=== PATIENT | female | born 1965 | race Caucasian/White ===

== ENCOUNTER 2017-08-30 14:01 | Observation (INO) ==
[2017-08-30] MEDS ORDERED: ASPIRIN 325 MG TABLET PO STA (14:19)
[2017-08-30] MEDS ORDERED: ASPIRIN 325 MG TABLET ONE (14:24)
[2017-08-30] MEDS ORDERED: NITROGLYCERIN SL 0.4 MG TABLET SL ONE (14:25)
[2017-08-30] MEDS: NITROGLYCERIN SL 0.4 MG TABLET SL PRN ×5 (14:26→23:36)
--- NOTE | 2017-08-30 14:33 | Order Completion Report ---
See report scanned to EMR
[2017-08-30 14:34] LABS: Eosinophils # 0.3 10*3/uL (0.0-0.87); Eosinophils % 5.5 % (0.00-10.9); Hematocrit 34.2 VOL% (35.7-47.0); Hemoglobin 12.2 GM/DL (12.0-16.0); Immature Granulocytes Absolute 0.05 #; Lymphocytes # 1.2 10*3/uL (1.4-4.0); Lymphocytes % 22.7 % (21.3-54.2); Mean Corpuscular HGB Conc 35.7 GM/DL (32-36); Mean Corpuscular Hemoglobin 31 PG (27-34); Mean Corpuscular Volume 88.1 FL (87-102); Mean Platelet Volume 9.8 FL (9.6-12.0); Monocytes # 0.4 10*3/uL (0.11-0.8); Monocytes % 7.9 % (1.7-12.7); Neutrophils # 3.2 10*3/uL (1.4-7.4); Neutrophils % 62.9 % (38.7-73.9); Platelet Count 233 T/CUMM (130-400); Red Blood Count 3.88 MC/CUMM (3.8-5.5); Red Cell Distribution Width 15.2 % (9.3-17.3); White Blood Count 5.1 T/CUMM (4-12)
[2017-08-30 15:14] LABS: Albumin 3.9 G/DL (3.4-5.0); Bilirubin,Total 2.4 MG/DL (0.2-1.0); Calcium 9.4 MG/DL (8.5-10.1); Osmolality,Calculated 277.5 MOS/KG (273-304); Potassium 3.6 MMOL/L (3.5-5.1); Total Protein 6.7 G/DL (6.4-8.3)
[2017-08-30] MEDS ORDERED: ALUM/MAG/SIMETH/LIDO VISC 1:1 30 ML BOTTLE PO STA (15:40)
[2017-08-30] MEDS ORDERED: ALUM/MAG/SIMETH/LIDO VISC 1:1 30 ML BOTTLE PO ONE (15:42)
--- NOTE | 2017-08-30 15:44 | Emergency Department Note ---
Tripp Odell Mantricia, am scribing for, and in the presence of, Salvador Anaya Jr., MD 14:13. IHéctor Marvin Jr., MD, personally performed the services described in this documentation, ascribed by Anjana Almaguer in my presence, and it is both accurate and complete 423 . Arrival - Arrival Chief Complaint: Chest Pain Stated Complaint: chest pain and sob ED Nursing Triage Note: Pt c/o Chest pain, right jaw pain, SOB, and nausea x 30 min. Mode of Arrival: Ambulatory Limitations: No Limitations Source: Patient - History of Present Illness HPI Narrative: Pt is a 52 y/o white female ambulating to ED with c/o chest pain that onset 1330 today. She also c/o right jaw pain, nausea, and SOB. She states that the jaw pain has been on and off. Pt states that the pain is worsened with movement and relieved while at rest. Pt denies taking an [employer] DIETITIAN THERAPEUTIC. At time of exam, pt's heart rate is 72 with a blood pressure of 113/57. she has a PMHx of HTN and hypothyroidism. No other complaints were reported to ED. Onset (ago): hour(s) Consistency: constant Severity: moderate, severe Allergies/Adverse Reactions: Allergies Allergy/AdvReac Type Severity Reaction Status Date / Time codeine Allergy ITCHING Verified 08/30/17 14:03 sumatriptan [From Imitrex] Allergy Swelling Verified 08/30/17 14:03 of Lip/Tongue/Throat Home Medications: Home Medications Medication Instructions Recorded Confirmed Type Estradiol Tab [Estrace Tab] 1 mg PO QAM 08/30/17 08/30/17 History Levothyroxine Tab [Synthroid Tab] 175 mcg PO DAILY@0700 08/30/17 08/30/17 History Losartan Potassium 50 mg PO QAM 08/30/17 08/30/17 History Pantoprazole Tab [Protonix Tab] 20 mg PO QAM 08/30/17 08/30/17 History hydroCHLOROthiazide 25 mg PO QAM 08/30/17 08/30/17 History [Hydrochlorothiazide] Review of System - Review of System 12 point system: reviewed and no additional remarkable complaints except as stated - Review of System Constitutional: Absent: chills, diaphoresis, fever Head/Ears/Nose/Throat: Present: other (right jaw pain) Respiratory: Present: other (SOB). Absent: cough Cardiovascular: Present: chest pain Gastrointestinal: Present: nausea. Absent: abdominal pain, vomiting Musculoskeletal: Absent: arm pain, back pain, leg pain, neck pain Medical,Surgical,& Family Hx - Medical History Cardio: History of: Hypertension Neurology: History of: Migraine, Seizures (STRESS SZ) Endocrine: History of: Thyroid Disorder (Hypo) - Social History Smoking Status: Never smoker Exam Physical Examination: General: Well-developed well-nourished, no apparent distress. Head: Normocephalic, atraumatic. Eyes: PERRLA, EOMI. Nose: No obvious acute deformities or discharge. Mouth: No obvious acute injury. Neck: Full range of motion without obvious pain. No midline tender to palpation. Lymphatic: no significant lymphadenopathy noted. Lungs: Clear to auscultation bilaterally, normal and equal air movement bilaterally, no obvious rales or wheezing. Heart: regular rate and rhythm, no obvious mummers. Abdomen: Soft nontender, nondistended, normal active bowel sounds. Skin: No obivous acute lesions noted Musculoskeletal: No gross deformities. Neurological: No focal findings, cranial nerves II through XII grossly normal. Psychiatric: Anxious : Deferred Vital Signs: Vital Signs Temperature 97.5 F L 08/30/17 14:02 Pulse Rate 75 08/30/17 15:00 Respiratory Rate 16 08/30/17 15:00 Blood Pressure 91/46 08/30/17 15:00 O2 Sat by Pulse Oximetry 100 08/30/17 15:00 Course Course Narrative: Differential diagnosis, ACS, IN, chest wall pain, PE - Reevaluation(s) Reevaluation #1: Improving but not completely pain-free. Time: 15:40 Results - Labs CBC & BMP: 08/30/17 14:21 08/30/17 14:21 Lab Results: I have reviewed the patients labs Labs: Laboratory Tests 08/30/17 08/30/17 14:21 14:21 Hct 34.2 L Lymph # (Auto) 1.2 L Total Bilirubin 2.40 H - EKG EKG results: interpreted by FRANCIE (Heart rate 67, narrow complex QRS complexes, normal sinus rhythm, no obvious acute ST changes.) - Diagnostic Findings Procedure: Chest x-ray: image reviewed by me (No obvious acute changes per me) Disposition Clinical Impression: Chest pain, Gilbert syndrome Case discussed with: patient, patient's family Disposition: Still a Patient Condition: Stable Time of Disposition: 15:43
--- NOTE | 2017-08-30 15:57 | XRay Report ---
Portable chest Indication: Chest pain Comparison: August 08, 2013 Findings: Cardiomediastinal contours are normal. Lungs are clear bilaterally. No acute osseous abnormalities. Visualized upper abdomen demonstrates no acute pathology. Impression: Normal chest PROCEDURE INTERPRETED AT [facility] DEPARTMENT OF RADIOLOGY Final Report Signed by: Denise Tellez MD
[2017-08-30] MEDS ORDERED: ACETAMINOPHEN 325 MG TABLET PO PRN (17:02)
[2017-08-30] MEDS ORDERED: MORPHINE 2 MG/1 ML SYRINGE IV PRN (17:29)
[2017-08-30] MEDS: DEXTROSE 5% NACL 0.45% 1,000 ML IV SCH (17:35)
[2017-08-30] MEDS: traMADol 50 MG TABLET PO PRN (17:57)
[2017-08-30] MEDS: DOCUSATE SODIUM 100 MG CAPSULE PO SCH (20:47)
[2017-08-30] MEDS: ONDANSETRON 4 MG/2 ML VIAL IV PRN (20:48)
[2017-08-31] MEDS: ONDANSETRON 4 MG/2 ML VIAL IV PRN (04:19)
[2017-08-31] MEDS: traMADol 50 MG TABLET PO PRN ×3 (04:20→21:28)
[2017-08-31 08:37] LABS: Troponin I Only < 0.015 NG/ML (0.00-0.045)
[2017-08-31] MEDS: DOCUSATE SODIUM 100 MG CAPSULE PO SCH ×2 (08:50→21:28)
[2017-08-31] MEDS: ENOXAPARIN 40 MG/0.4 ML SYRINGE SUBCUT SCH (08:50)
[2017-08-31 08:51] LABS: Free T4 (Free Thyroxine) 0.99 NG/DL (0.76-1.46); Thyroid Stimulating Hormone 3.87 uIU/ml (0.358-3.74)
[2017-08-31] MEDS: ESTRADIOL 1 MG TABLET PO SCH (08:51)
[2017-08-31] MEDS: PANTOPRAZOLE 40 MG TABLET PO SCH (08:51)
[2017-08-31] MEDS: hydroCHLOROthiazide 25 MG TABLET PO SCH (08:51)
[2017-08-31] MEDS: LOSARTAN 50 MG TABLET PO SCH (08:51)
[2017-08-31 09:22] LABS: Risk Ratio 4.3
--- NOTE | 2017-08-31 11:40 | Family Practice History&Phys ---
Assessment and Plan (1) Chest pain Status: Acute Assessment and plan: 08/31/2017: We will admit, repeat cardiac ices and get cardiology to look at. Current Visit: Yes (2) Gilbert syndrome Status: Acute Assessment and plan: 08/31/2017: This is chronic with this patient. She has no symptoms from Current Visit: Yes (3) Hypothyroidism Status: Acute Assessment and plan: 08/31/2017: Monitor thyroid status. It was normal TSH and free T4 in the ER Current Visit: Yes (4) HTN (hypertension) Status: Chronic Assessment and plan: 08/31/2017: Monitor vitals closely. Continue current medicines Current Visit: Yes (5) Obese Status: Chronic Assessment and plan: 08/31/2017: I discussed with patient the past weight issues. Will probably deal with this on an outpatient basis Current Visit: Yes History of Present Illness Chief complaint: Chest pain, nausea History of present illness: Ms. Browning is a 52 year old female Well-known to me. She began having chest pain and some shortness of breath while at home during laundry yesterday afternoon. It lasted approximately 30 minutes. Does not have a cardiac history and has never had a significant workup. She states that this did radiate to her right jaw and she became nauseated although she did not vomit. There was no diaphoresis associated with it. Came to the emergency room and they gave her several medications including GI cocktail (no relief), and also gave her a nitroglycerin which did give her some relief with jaw pain but not chest pain. She does have some risk factors for cardiac disease including obesity, hypertension, positive family history, sedentary lifestyle. She does not use alcohol or smoke. Denies any fever chills diarrhea. Not having any difficulty with swallowing. No arianna abdominal or midepigastric discomfort. No flank pain or leg swelling. Surgical history includes total hysterectomy and tonsillectomy. Abnormal lab: total bili 2.40. cxr normal. initial isos x 2 are negative plan to admit and get cardiology. Will get G.B. US if cardiac r/o Home Medications Medication Instructions Recorded Confirmed Type Estradiol Tab [Estrace Tab] 1 mg PO QAM 08/30/17 08/30/17 History Levothyroxine Tab [Synthroid Tab] 175 mcg PO DAILY@0700 10/08/17 10/08/17 History Losartan Potassium 50 mg PO QAM 08/30/17 08/30/17 History Pantoprazole Tab [Protonix Tab] 20 mg PO QAM 08/30/17 08/30/17 History hydroCHLOROthiazide 25 mg PO QAM 08/30/17 08/30/17 History [Hydrochlorothiazide] Allergies Allergy/AdvReac Type Severity Reaction Status Date / Time codeine Allergy ITCHING Verified 08/30/17 14:03 sumatriptan [From Imitrex] Allergy Swelling Verified 08/30/17 14:03 of Lip/Tongue/Throat 12 point system: reviewed and no additional remarkable complaints except as stated (as per hpi) Medical,Surgical,& Family Hx - Medical History Cardio: History of: Hypertension Neurology: History of: Migraine, Seizures (STRESS SZ) Endocrine: History of: Thyroid Disorder (Hypo) Gastrointestinal: History of: GERD - Family History Family History: Reports;: Family Cancer, Family Diabetes (Father, type 2), Family Heart Disease (Father), Family Hypertension (Mother), Family Stroke ( mother and father) Denies;: Family Anesthesia Reaction - Social History Smoking Status: Never smoker Frequency of Alcohol Use: Rarely Type of Drug Use: None Exam - Constitutional Vitals: Period Temp Pulse Resp BP Sys/Sanchez Pulse Ox Last 24 Hr 96.2 F-97.7 F 63-88 16-22 88-125/45-85 92-100 Exam: Well-developed, moderately obese female. She is alert and oriented and answering all questions appropriately. Her is in the room. HEENT pupils equal reactive to light extraocular movements are intact neck is supple trachea midline. Cardiovascular rate is regular no gallop or rubs 1 out of 6 systolic ejection murmur. No chest pain pressure present Lungs clear bilaterally no wheezing rales rhonchi Abdomen soft nondistended Extremities no clubbing cyanosis or edema Neurologically fully intact, no focal lateralizing motor or sensory deficits Results - Labs CBC & BMP: 08/30/17 14:21 08/30/17 14:21
--- NOTE | 2017-08-31 11:52 | Cardiology Consult Note ---
Roby Odell Lesley, RADHA, am scribing for, and in the presence of, Titi Gonzalez MD 11:51. Assessment and Plan - Time spent with patient Time spent with patient: Greater than 30 minutes (Record review, assessment, and documentation) (1) Obese Status: Chronic Assessment and plan: SEE PLAN LISTED BELOW Current Visit: Yes (2) HTN (hypertension) Status: Chronic Assessment and plan: SEE PLAN LISTED BELOW Current Visit: Yes (3) Chest pain Status: Acute Assessment and plan: SEE PLAN LISTED BELOW Current Visit: Yes (4) Nausea Status: Acute Assessment and plan: SEE PLAN LISTED BELOW Current Visit: Yes History of Present Illness - Data of Consult Patient: new to practice Consult date: 08/31/17 Requesting Physician: Diego Hutton Primary care physician: Diego Hutton - Consult Narrative Reason for consult: chest pain 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 She states she began having chest heaviness with difficulty breathing while doing laundry at home. She states the pain lasted approximately 30 minutes off and on. She notes that when the pain radiated into her right jaw, she decided to go to the emergency room for an evaluation. She reports an onset of nausea upon arriving to ER. She states she was given nitroglycerin sublingually in the ER, which alleviated her jaw pain but not her chest pain. She denies any aggravating factors. Past medical history includes hypothyroidism, hypertension, GERD, pseudoseizures, anxiety. Past surgical history includes tonsillectomy, hysterectomy, tubal , 7-8 laparoscopic surgeries while trying to get . Family history is significant for her father who had an [place] at the age of 69, and is diabetic. Cardiac risk factors include obesity, hypertension , sedentary lifestyle. She denies history of smoking, reports rare alcohol use , denies illicit drug use. The patient currently denies chest pain and dyspnea. She states she has had ongoing nausea since admission. Cardiac biomarkers have remained negative. D- dimer less than 0.5. Total bilirubin 2.4. All other labs unremarkable. Chest x-ray reveals no acute cardiopulmonary process. EKGs reveal sinus rhythm. The patient has been held n.p.o. overnight, we will order an echocardiogram and consider stress test. Will also add a fasting lipid panel to labs. IMPRESSION AND PLAN: 1. CHEST PAIN - currently pain free, troponins negative, EKG without ischemic changes. 2. NAUSEA - consider gallbladder workup. 3. HYPERTENSION - controlled, will monitor and adjust medications accordingly. 4. 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 Cardiology addendum. Patient examined chart reviewed discussed with nurse HIEU Jackson. 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 Negative troponin 4. EKG benign. Negative chest x-ray. Lifetime non-smoker. No diabetes. No history of exertional angina but does have dyspnea. Plan Echo Doppler Exercise cardiac stress test Risk factor modification CC: Diego Hutton, DO - Home Medications and Allergies Home Medications: Home Medications Medication Instructions Recorded Confirmed Type Estradiol Tab [Estrace Tab] 1 mg PO QAM 08/30/17 08/30/17 History Levothyroxine Tab [Synthroid Tab] 175 mcg PO DAILY@0700 08/30/17 08/30/17 History Losartan Potassium 50 mg PO QAM 08/30/17 08/30/17 History Pantoprazole Tab [Protonix Tab] 20 mg PO QAM 08/30/17 08/30/17 History hydroCHLOROthiazide 25 mg PO QAM 08/30/17 08/30/17 History [Hydrochlorothiazide] Allergies/Adverse Reactions: Allergies Allergy/AdvReac Type Severity Reaction Status Date / Time codeine Allergy ITCHING Verified 08/30/17 14:03 sumatriptan [From Imitrex] Allergy Swelling Verified 08/30/17 14:03 of Lip/Tongue/Throat - Constitutional Constitutional: Absent: anorexia, chills - EENT Nose, mouth and throat: Absent: dysphagia, headache(s) - Cardiovascular Cardiovascular: Present: chest pain with activity, dyspnea, radiating jaw, neck or arm pain. Absent: diaphoresis - Respiratory Respiratory: Present: dyspnea on exertion. Absent: cough - Gastrointestinal Gastrointestinal: Present: nausea. Absent: abdominal pain, change in bowel habits, coffee ground emesis, diarrhea, dyspepsia, heartburn, hematemesis, hematochezia, melena, vomiting - Genitourinary Genitourinary: Absent: flank pain, hematuria - Neurological Neurological: Absent: abnormal gait, abnormal speech, behavioral changes - Psychiatric Psychiatric: Present: anxiety - Endocrine Endocrine: Absent: cold intolerance, fatigue, heat intolerance - Hematologic/Lymphatic Hematologic/Lymphatic: Absent: easy bleeding Medical,Surgical,& Family Hx - Medical History Cardio: History of: Hypertension Neurology: History of: Migraine, Seizures (psuedo) Endocrine: History of: Thyroid Disorder (Hypo) Gastrointestinal: History of: GERD - Family History Family History: Reports;: Family Cancer, Family Diabetes (Father, type 2), Family Heart Disease (Father), Family Hypertension (Mother), Family Stroke ( mother and father) Denies;: Family Anesthesia Reaction - Social History Smoking Status: Never smoker Frequency of Alcohol Use: Rarely Type of Drug Use: None Marital Status: Lives With:: Spouse Functional capacity: independent ambulation Physical Examination Vital Signs Temp Pulse Resp BP Pulse Ox 97.5 F L 88 22 125/85 97 08/30/17 14:02 08/30/17 14:02 08/30/17 14:02 08/30/17 14:02 08/30/17 14:02 Exam: General: Appears well with no apparent distress. Pleasant and cooperative. Appears comfortable. HEENT: PERRL, normocephalic, atraumatic. Mucous membranes moist. No jaundice noted. Conjunctiva moist and clear, sclerae anicteric. Neck: No JVD, no thyromegaly or lymphadenopathy noted. No carotid bruit appreciated. Cardiac: Regular rate and rhythm. No murmur rub or gallop. PMI is nondisplaced. Lungs: Clear to auscultation without accessory muscle use to assist the respiratory pattern. No oxygen in use Abdomen: Soft, bowel sounds normoactive. Nontender and nondistended. No abdominal bruit or thrill noted. No masses noted. Musculoskeletal: No edema noted, SCD hose intact. Full range of motion is noted. Extremities: No clubbing, cyanosis noted. No edema noted. Upper extremity pulses 2+. Lower extremity pulses 2+. Capillary refill less than 3 seconds. Skin: Warm and dry. No unusual lesions or rashes. No skin breakdown appreciated. Neuro: Awake, alert and oriented 3. Moves all extremities well without hemiparesis or paralysis. No essential tremor is appreciated. Result/EKG - Labs CBC & BMP: 08/30/17 14:21 08/30/17 14:21 Lab Results: I have reviewed the past 24 hour labs Labs: Laboratory Results - last 24 hr 1008/30/17 08/30/17 14:21 14:21 14:21 WBC 5.1 RBC 3.88 Hgb 12.2 Hct 34.2 L MCV 88.1 MCH 31 MCHC 35.7 RDW 15.2 Plt Count 233 MPV 9.8 Neut % (Auto) 62.9 Lymph % (Auto) 22.7 [place] % (Auto) 7.9 Eos % (Auto) 5.5 Baso % (Auto) 0.0 Neut # (Auto) 3.2 Lymph # (Auto) 1.2 L [place] # (Auto) 0.4 Eos # (Auto) 0.3 Baso # (Auto) 0.0 Immature Gran % 1.0 Nucleated RBC % 0.0 Immature Gran # 0.05 Nucleated RBCs # 0.00 Immature Plt Fraction 0.0 D-Dimer, Quantitative <= 0.5 Sodium Potassium Chloride Carbon Dioxide Anion Gap BUN Creatinine GFR Calculation BUN/Creatinine Ratio Glucose Calculated Osmolality Calcium Total Bilirubin AST ALT Alkaline Phosphatase Troponin I < 0.015 C-Reactive Protein Total Protein Albumin Globulin Albumin/Globulin Ratio 08/30/17 08/30/17 08/30/17 14:21 18:08 21:40 WBC RBC Hgb Hct MCV MCH MCHC RDW Plt Count MPV Neut % (Auto) Lymph % (Auto) [place] % (Auto) Eos % (Auto) Baso % (Auto) Neut # (Auto) Lymph # (Auto) [place] # (Auto) Eos # (Auto) Baso # (Auto) Immature Gran % Nucleated RBC % Immature Gran # Nucleated RBCs # Immature Plt Fraction D-Dimer, Quantitative Sodium 139 Potassium 3.6 Chloride 104 Carbon Dioxide 28 Anion Gap 10.6 BUN 15 Creatinine 0.90 GFR Calculation 94 BUN/Creatinine Ratio 16.00 Glucose 104 Calculated Osmolality 277.5 Calcium 9.4 Total Bilirubin 2.40 H AST 22 ALT 38 Alkaline Phosphatase 61 Troponin I < 0.015 < 0.015 C-Reactive Protein Total Protein 6.7 Albumin 3.9 Globulin 2.8 Albumin/Globulin Ratio 1.3 08/31/17 07:46 WBC RBC Hgb Hct MCV MCH MCHC RDW Plt Count MPV Neut % (Auto) Lymph % (Auto) [place] % (Auto) Eos % (Auto) Baso % (Auto) Neut # (Auto) Lymph # (Auto) [place] # (Auto) Eos # (Auto) Baso # (Auto) Immature Gran % Nucleated RBC % Immature Gran # Nucleated RBCs # Immature Plt Fraction D-Dimer, Quantitative Sodium Potassium Chloride Carbon Dioxide Anion Gap BUN Creatinine GFR Calculation BUN/Creatinine Ratio Glucose Calculated Osmolality Calcium Total Bilirubin AST ALT Alkaline Phosphatase Troponin I C-Reactive Protein 0.36 H Total Protein Albumin Globulin Albumin/Globulin Ratio - Diagnostic Findings Procedure: Chest x-ray: report reviewed by me - EKG EKG results: interpreted by me, sinus rhythm ICarlos Thomas, MD, personally performed the services described in this documentation, ascribed by Mariaelena Ca NP in my presence, and it is both accurate and complete .
--- NOTE | 2017-08-31 13:18 | Order Completion Report ---
See report scanned to EMR
--- NOTE | 2017-08-31 13:29 | Event Note ---
Patient admitted for chest pain for nuclear stress testing. Patient achieved THR in Stage II of Dajuan Protocol with achievement of 7.1 METs. Patient experienced mild ZUÑIGA and right knee pain. Patient had no acute EKG changes. Minimal ST depression noted inferiorly, improved with rest. No chest pain, heaviness, or tightness. No dizziness, lightheadedness, or syncope. Patient now to nuclear medicine for final scan. Dr. Gonzalez to read, interpret, and advise.
--- NOTE | 2017-08-31 13:49 | Order Completion Report ---
See report scanned to EMR
[2017-08-31] MEDS: DEXTROSE 5% NACL 0.45% 1,000 ML IV SCH ×2 (14:18→17:25)
[2017-09-01] MEDS ORDERED: LEVOTHYROXINE 175 MCG TABLET PO SCH (07:00)
[2017-09-01] MEDS: LOSARTAN 50 MG TABLET PO SCH (08:37)
[2017-09-01] MEDS: DOCUSATE SODIUM 100 MG CAPSULE PO SCH (08:38)
[2017-09-01] MEDS: PANTOPRAZOLE 40 MG TABLET PO SCH (08:38)
[2017-09-01] MEDS: ENOXAPARIN 40 MG/0.4 ML SYRINGE SUBCUT SCH (08:38)
[2017-09-01] MEDS: hydroCHLOROthiazide 25 MG TABLET PO SCH (08:38)
[2017-09-01] MEDS: ESTRADIOL 1 MG TABLET PO SCH (08:38)
[2017-09-01] MEDS: DEXTROSE 5% NACL 0.45% 1,000 ML IV SCH ×2 (08:54→12:36)
--- NOTE | 2017-09-01 10:43 | Cardiology Progress Note ---
Roby Odell Lesley, RADHA, am scribing for, and in the presence of, Titi Gonzalez MD 10:43. 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 Browning is a 52 year old WF, without known cardiac history. She was admitted for observation with chest pain (radiating into right jaw), shortness of breath, and nausea. Past medical history includes hypothyroidism, hypertension, GERD, pseudoseizures, anxiety. Past surgical history includes tonsillectomy, hysterectomy, tubal , 7-8 laparoscopic surgeries while trying to get . Family history is significant for her father who had an [place] at the age of 69, and is diabetic. Cardiac risk factors include obesity, hypertension, sedentary lifestyle. She denies lifetime history of smoking, reports rare alcohol use, denies illicit drug use. Cardiac biomarkers negative, EKG benign. Chest x-ray reveals no acute cardiopulmonary process. September 01, 2017: The patient denies chest heaviness (although she did have an episode last night) , nausea has improved today. No tenderness to palpation over midsternal area, but she is tender to palpation to left flank from axilla to base of ribs on left. Also anteriorly below the left breast. Echocardiogram revealed LVEF 55-60% , mildly dilated left atrium, normal valves, normal RV function, mild TR PA pressure 40mmHg, no effusion. Normal exercise Cardiolite stress test, EF 65%, low risk scan. Encouraged weight loss and exercise for marginally elevated lipid panel, Trigs 155, LDL 121, HDL 43. Continue to monitor hypertension, chronic and stable. ROS: absent: chest pain, dyspnea, nausea no acute distress IMPRESSION AND PLAN: 1. CHEST PAIN - currently pain free, troponins negative, EKG without ischemic changes. 2. NAUSEA - improved, consider gallbladder workup. 3. HYPERTENSION - controlled, will monitor and adjust medications accordingly. 4. OBESITY - the patient would benefit from weight loss, lifestyle changes. Cardiology addendum patient examined Chart reviewed discussed with patient and her Juan Jose. Normal exercise cardiac stress test. Ejection fraction 65%. This is a low risk scan. Noncardiac chest pain. Patient and her have been reassured. Risk factor modification encouraged. Home per Dr. Hutton. Exam (Progress Note) - Constitutional Vitals: Period Temp Pulse Resp BP Sys/Sanchez Pulse Ox Last 24 Hr 96.8 F-98.2 F 69-78 16-20 100-120/53-62 95-97 Exam: General: Appears well with no apparent distress. Pleasant and cooperative. Appears comfortable. HEENT: PERRL, normocephalic, atraumatic. Mucous membranes moist. No jaundice noted. Conjunctiva moist and clear, sclerae anicteric. Neck: No JVD, no thyromegaly or lymphadenopathy noted. No carotid bruit appreciated. Cardiac: Regular rate and rhythm. No murmur rub or gallop. PMI is nondisplaced. Lungs: Clear to auscultation without accessory muscle use to assist the respiratory pattern. No oxygen in use. Abdomen: Soft, bowel sounds normoactive. Nontender and nondistended. No abdominal bruit or thrill noted. No masses noted. Musculoskeletal: No edema to BLE noted. Full range of motion is noted. Extremities: No clubbing, cyanosis noted. No edema noted. Upper extremity pulses 2+. Lower extremity pulses 2+. Capillary refill less than 3 seconds. Skin: Warm and dry. No unusual lesions or rashes. No skin breakdown appreciated. Neuro: Awake, alert and oriented 3. Moves all extremities well without hemiparesis or paralysis. No essential tremor is appreciated. Result/EKG - Labs CBC & BMP: 08/30/17 14:21 08/30/17 14:21 Lab Results: I have reviewed the past 24 hour labs Labs: Laboratory Results - last 24 hr 08/31/17 08/31/17 08/31/17 07:46 07:46 07:46 ESR Westergren 10 Total Creatine Kinase 72 CK-MB (CK-2) < 1.0 Troponin I < 0.015 C-Reactive Protein 0.36 H Triglycerides Cholesterol LDL Cholesterol VLDL Cholesterol HDL Cholesterol Heart Disease Risk Ratio Free T4 TSH 3rd Generation 08/31/17 08/31/17 07:46 07:46 ESR Westergren Total Creatine Kinase CK-MB (CK-2) Troponin I C-Reactive Protein Triglycerides 155 H Cholesterol 185 LDL Cholesterol 121.0 VLDL Cholesterol 31.0 HDL Cholesterol 43 Heart Disease Risk Ratio 4.30 Free T4 0.99 TSH 3rd Generation 3.870 H - EKG EKG results: interpreted by me, sinus rhythm I, Titi Gonzalez MD, personally performed the services described in this documentation, ascribed by Mariaelena Ca NP in my presence, and it is both accurate and complete .
[2017-09-01 12:15] VITALS: BP 98/60
--- NOTE | 2017-09-01 13:38 | Ultrasound Report ---
History is nausea There is increased echogenicity of liver with attenuation of the ultrasound beam. Liver is 17.0 cm in length No gallstones or biliary ductal dilatation seen Visualized pancreas is normal in size No right renal hydronephrosis seen Aorta and IVC are obscured by bowel gas Impression: 1. Fatty infiltration the liver 2. Limited visualization of midline retroperitoneal structures PROCEDURE INTERPRETED AT [facility] DEPARTMENT OF RADIOLOGY Final Report Signed by: Dr. Andreia Dominguez
--- NOTE | 2017-09-01 14:30 | Discharge Summary ---
Hospital Course - Hospital Course Hospital Course: Patient was put in hospital for atypical chest pain and right upper quadrant pain. She underwent a cardiac evaluation with cardiac stress test as well as thallium scan. She also an echocardiogram. All this was found to be normal with an ejection fraction of 65%. There was subsequently felt that she probably had some costochondritis/pleurisy and was given medication for this. We did do a right upper quadrant ultrasound/gallbladder ultrasound. This proved to show no biliary ductal enlargement or any stones in the gallbladder There is no significant gallbladder wall thickening. Patient was doing better at the end of the day and discharged home on appropriate medications. We will have her follow-up closely if any problems. She did voice agreement with Diagnosis - Discharge Diagnosis (1) Chest pain Status: Acute (2) Gilbert syndrome Status: Acute (3) Hypothyroidism Status: Acute (4) HTN (hypertension) Status: Chronic (5) Obese Status: Chronic Specialty Discharge - Follow Up or Referrals Follow up with: Diego Hutton DO [Physician] - 2 Weeks (09/15/2017 1:00) Discharge Plan - Discharge Data Disposition: Disch To Home/Self Care Condition at Discharge: Stable Discharge Diet: heart healthy Activity: increase activity as tolerated Hygiene: no restrictions Weight Bearing at Discharge: weight bear as tolerated Driving: no restrictions Contact your physician if you experience:: fever over 101, Nausea/Vomiting, Shortness of breath - Discharge Medications New traMADol/ACETAMINOPH 37.5-325 [Ultracet] 1 tablet PO Q12H PRN #20 tablet PRN Reason: Pain Continue Pantoprazole Tab [Protonix Tab] 20 mg PO QAM Losartan Potassium 50 mg PO QAM Levothyroxine Tab [Synthroid Tab] 175 mcg PO DAILY@0700 Estradiol Tab [Estrace Tab] 1 mg PO QAM hydroCHLOROthiazide [Hydrochlorothiazide] 25 mg PO QAM - Follow Up or Referral Follow Up: Diego Hutton DO [Physician] - 2 Weeks (09/15/2017 1:00) - Forms/Instructions Instructions: Tramadol/Acetaminophen (By mouth), Chest Pain (DC) Exam - Constitutional Vitals: Period Temp Pulse Resp BP Sys/Sanchez Pulse Ox Last 24 Hr 96.8 F-98.2 F 68-72 16-20 98-117/53-69 95-97 Discharge Results Procedures and tests throughout hospitalization: Pending Orders 08/31/17 NM sourav perf SPECT & CA stress Routine DS: Provider Date of admission: 08/30/17 15:44 Primary care physician: . No PCP Attending physician on admission: Diego Hutton DO Consults: 08/30/17 17:02 Consult to Case Mgmt/Social Srvs [CONS] Routine Reason for Case Mgmt/Social Srvs: Discharge Planning Consult to Physician [CONS] Routine Comment: Consulting Provider: Consult to Specialist Group: Cardiology When should Consulting Provider be notified: Now 08/30/17 17:14 Consult to Pastoral Services [CONS] Routine Comment: Pastoral Screen: Request Plate [employer] Z[employer] Visit Pastoral Screen Source of Request: Patient Discharging clinician: Diego Hutton DO
[2017-09-01] MEDS: ONDANSETRON 4 MG/2 ML VIAL IV PRN (15:18)
== END 2017-09-01 16:09 | disposition home or self-care (01) ==
LOC: N.ED 14:01 → N.EDINP 14:01 → N.TELEN 17:02
PROVIDERS: ADMIT Family Medicine; ATTEND Family Medicine

== ENCOUNTER 2018-07-03 19:53 | Observation (INO) ==
[2018-07-03 21:58] LABS: Eosinophils # 0.3 10*3/uL (0.0-0.87); Eosinophils % 3.8 % (0.00-10.9); Hematocrit 37.2 VOL% (35.7-47.0); Hemoglobin 12.8 GM/DL (12.0-16.0); Immature Granulocytes % 0.8 %; Immature Granulocytes Absolute 0.05 #; Lymphocytes # 1.5 10*3/uL (1.4-4.0); Lymphocytes % 23.3 % (21.3-54.2); Mean Corpuscular HGB Conc 34.4 GM/DL (32-36); Mean Corpuscular Hemoglobin 31 PG (27-34); Mean Corpuscular Volume 89.2 FL (87-102); Mean Platelet Volume 9.9 FL (9.6-12.0); Monocytes # 0.6 10*3/uL (0.11-0.8); Monocytes % 9.7 % (1.7-12.7); Neutrophils # 4.1 10*3/uL (1.4-7.4); Neutrophils % 62.4 % (38.7-73.9); Platelet Count 279 T/CUMM (130-400); Red Blood Count 4.17 MC/CUMM (3.8-5.5); Red Cell Distribution Width 15.5 % (9.3-17.3); White Blood Count 6.6 T/CUMM (4-12)
[2018-07-03 22:18] LABS: Albumin 4.4 G/DL (3.4-5.0); Bilirubin,Total 2.7 MG/DL (0.2-1.0); Calcium 9.6 MG/DL (8.5-10.1); Osmolality,Calculated 277.8 MOS/KG (273-304); Potassium 3.3 MMOL/L (3.5-5.1); Total Protein 7.6 G/DL (6.4-8.3)
[2018-07-04] MEDS ORDERED: ALUM/MAG/SIMETH/LIDO VISC 1:1 30 ML BOTTLE PO STA (02:35)
[2018-07-04] MEDS ORDERED: ASPIRIN EC 325 MG TABLET PO STA (03:20)
[2018-07-04] MEDS ORDERED: ONDANSETRON 4 MG/2 ML VIAL IV PRN (03:25)
[2018-07-04] MEDS ORDERED: LACTATED RINGERS 1,000 ML IV SCH (03:30)
[2018-07-04] MEDS: SODIUM CHLOR 0.45% KCL 20 MEQ 20 MEQ/1,000 ML BAG IV SCH ×2 (05:35→16:57)
[2018-07-04] MEDS: PANTOPRAZOLE 40 MG TABLET PO SCH (12:51)
[2018-07-05] MEDS: SODIUM CHLOR 0.45% KCL 20 MEQ 20 MEQ/1,000 ML BAG IV SCH ×5 (01:04→13:01)
[2018-07-05] MEDS ORDERED: PANTOPRAZOLE 40 MG TABLET PO ONE (03:33)
[2018-07-05] MEDS ORDERED: ALUM/MAG/SIMETH/LIDO VISC 1:1 30 ML BOTTLE PO ONE (03:34)
[2018-07-05] MEDS: ACETAMINOPHEN 500 MG TABLET PO PRN ×2 (03:45→11:38)
[2018-07-05] MEDS: LEVOTHYROXINE 175 MCG TABLET PO SCH (06:05)
[2018-07-05] MEDS: ASPIRIN EC 81 MG TABLET PO SCH (10:05)
[2018-07-05] MEDS: POTASSIUM CHLORIDE 20 MEQ TABLET PO SCH (10:05)
[2018-07-05] MEDS: hydroCHLOROthiazide 25 MG TABLET PO SCH (10:05)
[2018-07-05] MEDS: LOSARTAN 50 MG TABLET PO SCH (10:05)
[2018-07-05] MEDS: PANTOPRAZOLE 40 MG TABLET PO SCH (10:06)
[2018-07-06 03:51] LABS: Eosinophils # 0.3 10*3/uL (0.0-0.87); Eosinophils % 5.2 % (0.00-10.9); Hematocrit 33.7 VOL% (35.7-47.0); Hemoglobin 11.3 GM/DL (12.0-16.0); Immature Granulocytes % 0.8 %; Immature Granulocytes Absolute 0.04 #; Lymphocytes # 1.4 10*3/uL (1.4-4.0); Lymphocytes % 29.5 % (21.3-54.2); Mean Corpuscular HGB Conc 33.5 GM/DL (32-36); Mean Corpuscular Hemoglobin 30 PG (27-34); Mean Corpuscular Volume 90.6 FL (87-102); Mean Platelet Volume 10.1 FL (9.6-12.0); Monocytes # 0.4 10*3/uL (0.11-0.8); Monocytes % 9.1 % (1.7-12.7); Neutrophils # 2.7 10*3/uL (1.4-7.4); Neutrophils % 55.4 % (38.7-73.9); Platelet Count 241 T/CUMM (130-400); Red Blood Count 3.72 MC/CUMM (3.8-5.5); Red Cell Distribution Width 15.9 % (9.3-17.3); White Blood Count 4.8 T/CUMM (4-12)
[2018-07-06 04:15] LABS: Calcium 8.6 MG/DL (8.5-10.1); Osmolality,Calculated 281.3 MOS/KG (273-304); Potassium 3.9 MMOL/L (3.5-5.1); Risk Ratio 4.09
[2018-07-06] MEDS: SODIUM CHLOR 0.45% KCL 20 MEQ 20 MEQ/1,000 ML BAG IV SCH ×3 (04:20→14:24)
[2018-07-06 04:59] LABS: Albumin 3.5 G/DL (3.4-5.0); Bilirubin,Direct 0.31 MG/DL (0.0-0.20); Bilirubin,Indirect 1.7 MG/DL (0.0-1.0); Total Protein 6.3 G/DL (6.4-8.3)
[2018-07-06] MEDS: LEVOTHYROXINE 175 MCG TABLET PO SCH (05:36)
[2018-07-06] MEDS ORDERED: PROPOFOL 200 MG/20 ML VIAL IV ONE (10:00)
[2018-07-06] MEDS ORDERED: LIDOCAINE 2% 5 ML VIAL ONE (10:00)
[2018-07-06] MEDS: LOSARTAN 50 MG TABLET PO SCH (14:25)
[2018-07-06] MEDS: ASPIRIN EC 81 MG TABLET PO SCH (14:25)
[2018-07-06] MEDS: hydroCHLOROthiazide 25 MG TABLET PO SCH (14:25)
[2018-07-06] MEDS: ACETAMINOPHEN 500 MG TABLET PO PRN ×2 (14:26→22:15)
[2018-07-06] MEDS: POTASSIUM CHLORIDE 20 MEQ TABLET PO SCH (14:26)
[2018-07-06] MEDS: PANTOPRAZOLE 40 MG TABLET PO SCH (14:34)
[2018-07-06] MEDS ORDERED: MAGNESIUM SULF RIDER 2 GM in PREMIX 1 EACH IV PRN (19:19)
[2018-07-06] MEDS ORDERED: POTASSIUM CHLORIDE RIDER 10 MEQ in PREMIX 1 EACH IV PRN (19:19)
[2018-07-07] MEDS: SODIUM CHLOR 0.45% KCL 20 MEQ 20 MEQ/1,000 ML BAG IV SCH ×3 (04:25→15:28)
[2018-07-07 05:17] LABS: Basophils % 0.2 % (0.0-0.8); Eosinophils # 0.3 10*3/uL (0.0-0.87); Eosinophils % 5.3 % (0.00-10.9); Hematocrit 34.8 VOL% (35.7-47.0); Hemoglobin 11.6 GM/DL (12.0-16.0); Immature Granulocytes % 1.1 %; Immature Granulocytes Absolute 0.05 #; Lymphocytes # 1.3 10*3/uL (1.4-4.0); Mean Corpuscular HGB Conc 33.3 GM/DL (32-36); Mean Corpuscular Hemoglobin 30 PG (27-34); Mean Corpuscular Volume 90.9 FL (87-102); Mean Platelet Volume 9.9 FL (9.6-12.0); Monocytes # 0.4 10*3/uL (0.11-0.8); Monocytes % 8.3 % (1.7-12.7); Neutrophils # 2.7 10*3/uL (1.4-7.4); Neutrophils % 58.1 % (38.7-73.9); Platelet Count 242 T/CUMM (130-400); Red Blood Count 3.83 MC/CUMM (3.8-5.5); Red Cell Distribution Width 15.3 % (9.3-17.3); White Blood Count 4.7 T/CUMM (4-12)
[2018-07-07 05:24] LABS: PT Patient Result 10.7 SECS
[2018-07-07] MEDS: LEVOTHYROXINE 175 MCG TABLET PO SCH (05:48)
[2018-07-07] MEDS: SODIUM CHLORIDE 0.9% 1,000 ML IV SCH ×2 (05:48→23:15)
[2018-07-07 05:54] LABS: Osmolality,Calculated 283.1 MOS/KG (273-304); Potassium 3.8 MMOL/L (3.5-5.1)
[2018-07-07] MEDS ORDERED: DIAZEPAM 5 MG TABLET PO ONE ×2 (06:30→14:00)
[2018-07-07] MEDS ORDERED: diphenhydrAMINE CAP 25 MG CAPSULE PO ONE ×2 (06:30→14:00)
[2018-07-07] MEDS: hydroCHLOROthiazide 25 MG TABLET PO SCH (15:54)
[2018-07-07] MEDS: POTASSIUM CHLORIDE 20 MEQ TABLET PO SCH (15:56)
[2018-07-07] MEDS: ASPIRIN EC 81 MG TABLET PO SCH (15:57)
[2018-07-07] MEDS: LOSARTAN 50 MG TABLET PO SCH (15:58)
[2018-07-07] MEDS: PANTOPRAZOLE 40 MG TABLET PO SCH (15:59)
[2018-07-07] MEDS ORDERED: HYDROmorphone 2 MG/1 ML VIAL ONE (17:25)
[2018-07-07] MEDS ORDERED: MIDAZOLAM 2 MG/2 ML VIAL ONE (17:25)
[2018-07-07] MEDS ORDERED: HEPARIN/NACL 0.9% 2 UNITS/ML 1,000 ML IV ONE (17:55)
[2018-07-07] MEDS ORDERED: LIDOCAINE 1% 20 ML VIAL ONE (17:55)
[2018-07-07] MEDS ORDERED: ZALEPLON 5 MG CAPSULE PO PRN (17:58)
[2018-07-08] MEDS: SODIUM CHLORIDE 0.9% 1,000 ML IV SCH ×3 (00:44→13:45)
[2018-07-08 05:45] LABS: Calcium 8.8 MG/DL (8.5-10.1); Osmolality,Calculated 282.1 MOS/KG (273-304); Potassium 3.6 MMOL/L (3.5-5.1)
[2018-07-08] MEDS: LEVOTHYROXINE 175 MCG TABLET PO SCH (06:28)
[2018-07-08 08:20] VITALS: BP 142/68
[2018-07-08] MEDS ORDERED: FUROSEMIDE 40 MG TABLET PO SCH (09:00)
[2018-07-08] MEDS: PANTOPRAZOLE 40 MG TABLET PO SCH (13:36)
[2018-07-08] MEDS: LOSARTAN 50 MG TABLET PO SCH (13:36)
[2018-07-08] MEDS: ASPIRIN EC 81 MG TABLET PO SCH (13:36)
[2018-07-08] MEDS: hydroCHLOROthiazide 25 MG TABLET PO SCH (13:36)
[2018-07-08] MEDS: POTASSIUM CHLORIDE 20 MEQ TABLET PO SCH (13:37)
[2018-07-08] MEDS: SODIUM CHLOR 0.45% KCL 20 MEQ 20 MEQ/1,000 ML BAG IV SCH ×2 (13:43→13:44)
[2018-07-08 14:05] LABS: ABG Base Excess 0.4 MMOL/L (-2.5-2.5); ABG HCO3 24.7 MMOL/L (20-26); ABG Oxygen Saturation 96.1 % (95-100); ABG PCO2 39.4 MM HG (35-48); ABG PH 7.409 (7.35-7.45); ABG PO2 77.8 MM HG (80-95); ABG TCO2 22.3 MMOL/L (23-27)
== END 2018-07-08 16:11 | disposition home or self-care (01) ==
LOC: N.ED 19:53 → N.EDINP 19:53 → N.TELEN 07-04 04:15
PROVIDERS: ADMIT Family Medicine; ATTEND Family Medicine